=== PATIENT | male | born 1955 | race Caucasian/White ===

== ENCOUNTER 2024-02-04 13:14 | Inpatient (IN) | payer OTHER, BC ==
[~2024-02-04] VITALS: Ht 190.5 cm; Wt 106.6 kg
[2024-02-04 13:24] VITALS: BP 134/90; PULSE 92; RESP 18; TEMP 98.2; O2SAT 100
[2024-02-04 14:44] LABS: BASOPHILS % (AUTO) 0.4 % (0.0-2.0); EOSINOPHILS % (AUTO) 0.3 % (0.0-4.0); HEMOGLOBIN 14.4 g/dL (12.0-18.0); LYMPHOCYTES # (AUTO) 0.5 K/uL (2.0-11.5); LYMPHOCYTES % (AUTO) 4.4 % (20.5-51.1); MEAN CORPUSCULAR HEMOGLOBIN 30 pg (27-31); MEAN CORPUSCULAR HGB CONC 33 g/dL (33-37); MEAN CORPUSCULAR VOLUME 90.7 fL (80-94); MONOCYTES # (AUTO) 0.7 K/uL (0.8-1.0); MONOCYTES % (AUTO) 6.1 % (1.7-9.3); NEUTROPHILS # (AUTO) 10.7 K/uL (1.8-7.7); NEUTROPHILS % (AUTO) 88.8 % (42.2-75.2); PLATELET COUNT (AUTO) 218 K/uL (140-450); RED BLOOD CELL COUNT(AUTO) 4.86 MIL/uL (4.20-6.10); RED CELL DISTRIBUTION WIDTH 17.1 % (11.6-13.7); WHITE BLOOD COUNT (AUTO) 12.1 K/uL (4.8-10.8)
[2024-02-04 14:54] LABS: ANION GAP 10.3 (8-16); CALCIUM 8.7 mg/dL (8.5-10.1); CARBON DIOXIDE 29.2 mmol/L (21-32); CREATININE 0.7 mg/dL (0.6-1.3); POTASSIUM 3.5 mmol/L (3.5-5.1)
[2024-02-04] MEDS ORDERED: cefTRIAXone 1,000 MG VIAL ONE ×2 (15:42)
[2024-02-04] MEDS ORDERED: ACETAMINOPHEN 325 MG TAB PO PRN (18:55)
[2024-02-04] MEDS ORDERED: AZITHROMYCIN 500 MG INJ VIAL IV ONE (19:28)
[2024-02-04] MEDS: AZITHROMYCIN 500 MG in DEXTROSE 5% 250 ML IV SCH (19:35)
[2024-02-04] MEDS: NACL 0.9% 1,000 ML IV SCH (19:36)
[2024-02-04] MEDS: ONDANSETRON 4 MG/2 ML VIAL IVP PRN (19:51)
[2024-02-04] MEDS ORDERED: ABIR250T2 PO (20:17)
[2024-02-04] MEDS ORDERED: QUET50TA PO (20:17)
[2024-02-04] MEDS ORDERED: PRED5TAB7 PO (20:17)
[2024-02-04] MEDS ORDERED: SERT25TA PO (20:17)
[2024-02-04] MEDS ORDERED: HYDR-5080 PO (20:17)
[2024-02-04] MEDS ORDERED: ZYL300 PO (20:17)
[2024-02-04] MEDS ORDERED: SENN-73 PO (20:17)
[2024-02-04] MEDS ORDERED: POTA8TAB19 PO (20:24)
[2024-02-04] MEDS ORDERED: AMYL-30 PO (20:25)
[2024-02-04 20:39] VITALS: PULSE 94
[2024-02-04 21:00] VITALS: PULSE 88; RESP 18; O2SAT 96
[2024-02-04] MEDS ORDERED: MORPHINE SULFATE 2 MG/ML SYR IVP PRN (22:10)
[2024-02-04] MEDS: HYDROcodone/APAP 5/325 MG 1 TAB TAB PO PRN (22:45)
[2024-02-04 23:33] VITALS: O2SAT 96
[2024-02-05] VITALS (12 sets, daily range): BP systolic 103–139; BP diastolic 60–79; PULSE 84–108; RESP 17–20; TEMP 96.6–97.8; O2SAT 87–100
[2024-02-05 05:41] LABS: BASOPHILS % (AUTO) 0.3 % (0.0-2.0); EOSINOPHILS # (AUTO) 0.1 K/uL (0-0.4); HEMATOCRIT 43.4 % (36-52); HEMOGLOBIN 14.4 g/dL (12.0-18.0); LYMPHOCYTES # (AUTO) 1.4 K/uL (2.0-11.5); LYMPHOCYTES % (AUTO) 10.1 % (20.5-51.1); MEAN CORPUSCULAR HEMOGLOBIN 30 pg (27-31); MEAN CORPUSCULAR HGB CONC 33 g/dL (33-37); MEAN CORPUSCULAR VOLUME 91.1 fL (80-94); MONOCYTES # (AUTO) 1.3 K/uL (0.8-1.0); MONOCYTES % (AUTO) 8.9 % (1.7-9.3); NEUTROPHILS # (AUTO) 11.2 K/uL (1.8-7.7); NEUTROPHILS % (AUTO) 79.7 % (42.2-75.2); PLATELET COUNT (AUTO) 234 K/uL (140-450); RED BLOOD CELL COUNT(AUTO) 4.76 MIL/uL (4.20-6.10); RED CELL DISTRIBUTION WIDTH 16.6 % (11.6-13.7); WHITE BLOOD COUNT (AUTO) 14.1 K/uL (4.8-10.8)
[2024-02-05 05:44] LABS: ANION GAP 8.9 (8-16); CALCIUM 8.8 mg/dL (8.5-10.1); CARBON DIOXIDE 28.2 mmol/L (21-32); CREATININE 0.7 mg/dL (0.6-1.3); POTASSIUM 3.1 mmol/L (3.5-5.1)
[2024-02-05] MEDS: POTASSIUM CHLORIDE 10 MEQ TABER PO SCH (08:33)
[2024-02-05] MEDS: MAG SULF 2000 MG/WATER PREMIX 50 ML IV SCH (08:39)
[2024-02-05] MEDS: allopurinoL 300 MG TAB PO SCH (20:29)
[2024-02-05] MEDS: METOPROLOL 25 MG TAB PO SCH (20:29)
[2024-02-06] VITALS (11 sets, daily range): BP systolic 113–128; BP diastolic 66–72; PULSE 70–102; RESP 16–19; TEMP 96.3–97.4; O2SAT 92–96
[2024-02-06 05:54] LABS: BASOPHILS % (AUTO) 0.2 % (0.0-2.0); EOSINOPHILS # (AUTO) 0.2 K/uL (0-0.4); HEMATOCRIT 39.8 % (36-52); HEMOGLOBIN 12.9 g/dL (12.0-18.0); LYMPHOCYTES # (AUTO) 0.9 K/uL (2.0-11.5); MEAN CORPUSCULAR HEMOGLOBIN 30 pg (27-31); MEAN CORPUSCULAR HGB CONC 33 g/dL (33-37); MEAN CORPUSCULAR VOLUME 91.2 fL (80-94); MONOCYTES # (AUTO) 1.1 K/uL (0.8-1.0); MONOCYTES % (AUTO) 9.1 % (1.7-9.3); NEUTROPHILS # (AUTO) 9.4 K/uL (1.8-7.7); NEUTROPHILS % (AUTO) 80.7 % (42.2-75.2); PLATELET COUNT (AUTO) 171 K/uL (140-450); RED BLOOD CELL COUNT(AUTO) 4.36 MIL/uL (4.20-6.10); RED CELL DISTRIBUTION WIDTH 16.7 % (11.6-13.7); WHITE BLOOD COUNT (AUTO) 11.7 K/uL (4.8-10.8)
[2024-02-06 06:25] LABS: ANION GAP 5.7 (8-16); CALCIUM 8.5 mg/dL (8.5-10.1); CARBON DIOXIDE 33.2 mmol/L (21-32); CREATININE 0.7 mg/dL (0.6-1.3); POTASSIUM 3.9 mmol/L (3.5-5.1)
[2024-02-06] MEDS: QUEtiapine FUMARATE 25 MG TAB PO SCH (09:15)
[2024-02-06] MEDS: predniSONE 5 MG TAB PO SCH (09:15)
[2024-02-06] MEDS: SERTRALINE 50 MG TAB PO SCH (09:17)
[2024-02-06] MEDS: ALBUTEROL SULFATE/IPRATROPIU 3 ML SOL IH PRN (10:44)
[2024-02-06] MEDS ORDERED: COMMUNICATION ORDER MC SCH (17:00)
[2024-02-06] MEDS: CREON PO SCH (17:05)
[2024-02-07] VITALS (10 sets, daily range): BP systolic 123–140; BP diastolic 64–74; PULSE 66–92; RESP 16–22; TEMP 96.1–97; O2SAT 85–96
[2024-02-07 05:36] LABS: BASOPHILS % (AUTO) 0.2 % (0.0-2.0); EOSINOPHILS # (AUTO) 0.4 K/uL (0-0.4); HEMATOCRIT 37.2 % (36-52); HEMOGLOBIN 12.4 g/dL (12.0-18.0); LYMPHOCYTES # (AUTO) 1.1 K/uL (2.0-11.5); LYMPHOCYTES % (AUTO) 8.1 % (20.5-51.1); MEAN CORPUSCULAR HEMOGLOBIN 31 pg (27-31); MEAN CORPUSCULAR HGB CONC 33 g/dL (33-37); MEAN CORPUSCULAR VOLUME 91.4 fL (80-94); MONOCYTES # (AUTO) 0.9 K/uL (0.8-1.0); MONOCYTES % (AUTO) 7.2 % (1.7-9.3); NEUTROPHILS # (AUTO) 10.6 K/uL (1.8-7.7); NEUTROPHILS % (AUTO) 81.5 % (42.2-75.2); PLATELET COUNT (AUTO) 182 K/uL (140-450); RED BLOOD CELL COUNT(AUTO) 4.07 MIL/uL (4.20-6.10); RED CELL DISTRIBUTION WIDTH 16.3 % (11.6-13.7)
[2024-02-07 05:50] LABS: ANION GAP 7.9 (8-16); CALCIUM 8.4 mg/dL (8.5-10.1); CARBON DIOXIDE 31.6 mmol/L (21-32); CREATININE 0.6 mg/dL (0.6-1.3); POTASSIUM 3.5 mmol/L (3.5-5.1)
[2024-02-07 11:14] LABS: BLOOD GAS PCO2 41.6 mmHg (35-45); BLOOD GAS PH 7.445 (7.35-7.45); BLOOD GAS PO2 74.2 mmHg (75-100)
[2024-02-07 11:15] LABS: BLOOD GAS BASE EXCESS 3.5 mmol/L (-2.0-2.0); BLOOD GAS O2 SAT% 95.1 % (92.0-98.5)
[2024-02-07 11:17] LABS: BLOOD GAS HCO3 27.9 mmol/L (22-26)
[2024-02-07] MEDS: PANTOPRAZOLE 40 MG INJ VIAL IVP SCH (18:33)
[2024-02-07] MEDS ORDERED: PANTOPRAZOLE 40 MG INJ VIAL IVP SCH (21:00)
[2024-02-08] VITALS (8 sets, daily range): BP systolic 127–140; BP diastolic 61–75; PULSE 72–101; RESP 18–24; TEMP 96.8–97.9; O2SAT 91–98
[2024-02-08 06:05] LABS: BASOPHILS % (AUTO) 0.3 % (0.0-2.0); EOSINOPHILS # (AUTO) 0.4 K/uL (0-0.4); HEMATOCRIT 35.6 % (36-52); LYMPHOCYTES # (AUTO) 1.2 K/uL (2.0-11.5); LYMPHOCYTES % (AUTO) 11.1 % (20.5-51.1); MEAN CORPUSCULAR HEMOGLOBIN 30 pg (27-31); MEAN CORPUSCULAR HGB CONC 34 g/dL (33-37); MEAN CORPUSCULAR VOLUME 90.3 fL (80-94); MONOCYTES % (AUTO) 9.4 % (1.7-9.3); NEUTROPHILS # (AUTO) 7.9 K/uL (1.8-7.7); NEUTROPHILS % (AUTO) 75.2 % (42.2-75.2); PLATELET COUNT (AUTO) 182 K/uL (140-450); RED BLOOD CELL COUNT(AUTO) 3.94 MIL/uL (4.20-6.10); RED CELL DISTRIBUTION WIDTH 16.3 % (11.6-13.7); WHITE BLOOD COUNT (AUTO) 10.5 K/uL (4.8-10.8)
[2024-02-08 06:38] LABS: ANION GAP 6.8 (8-16); CALCIUM 8.1 mg/dL (8.5-10.1); CARBON DIOXIDE 32.8 mmol/L (21-32); CREATININE 0.6 mg/dL (0.6-1.3); POTASSIUM 3.6 mmol/L (3.5-5.1)
[2024-02-08] MEDS: LORazepam 1 MG TAB PO PRN (15:57)
[2024-02-09] VITALS (16 sets, daily range): BP systolic 125–149; BP diastolic 4–75; PULSE 65–91; RESP 0–40; TEMP 97–97.7; O2SAT 90–99
[2024-02-09] MEDS ORDERED: ALBUTEROL SULFATE/IPRATROPIU 3 ML SOL IH ONE (00:02)
[2024-02-09] MEDS: ALBUTEROL SULFATE/IPRATROPIU 3 ML SOL IH SCH (00:04)
[2024-02-09 06:48] LABS: ANION GAP 7.3 (8-16); CALCIUM 8.5 mg/dL (8.5-10.1); CARBON DIOXIDE 32.9 mmol/L (21-32); CREATININE 0.6 mg/dL (0.6-1.3); POTASSIUM 3.2 mmol/L (3.5-5.1)
[2024-02-09] MEDS ORDERED: ALBUTEROL SULFATE/IPRATROPIU 3 ML SOL IH SCH (07:00)
[2024-02-09 07:03] LABS: BASOPHILS % (AUTO) 0.3 % (0.0-2.0); EOSINOPHILS # (AUTO) 0.2 K/uL (0-0.4); EOSINOPHILS % (AUTO) 1.4 % (0.0-4.0); HEMATOCRIT 38.7 % (36-52); HEMOGLOBIN 12.8 g/dL (12.0-18.0); LYMPHOCYTES # (AUTO) 0.7 K/uL (2.0-11.5); LYMPHOCYTES % (AUTO) 5.2 % (20.5-51.1); MEAN CORPUSCULAR HEMOGLOBIN 30 pg (27-31); MEAN CORPUSCULAR HGB CONC 33 g/dL (33-37); MEAN CORPUSCULAR VOLUME 89.9 fL (80-94); MONOCYTES % (AUTO) 6.7 % (1.7-9.3); NEUTROPHILS # (AUTO) 12.2 K/uL (1.8-7.7); NEUTROPHILS % (AUTO) 86.4 % (42.2-75.2); PLATELET COUNT (AUTO) 209 K/uL (140-450); RED CELL DISTRIBUTION WIDTH 16.2 % (11.6-13.7); WHITE BLOOD COUNT (AUTO) 14.2 K/uL (4.8-10.8)
[2024-02-09] MEDS: KCL 20 MEQ IN 100 mL PREMIX 200 ML IV SCH (12:53)
[2024-02-09] MEDS: PIPERACILLIN/TAZOBACTAM 3.375 GM in DEXTROSE 5% 50 ML IV SCH (16:54)
[2024-02-10] VITALS (20 sets, daily range): BP systolic 93–212; BP diastolic 30–88; PULSE 9–93; RESP 18–56; TEMP 96.6–99.2; O2SAT 90–98
[2024-02-10 06:40] LABS: BASOPHILS % (AUTO) 0.3 % (0.0-2.0); EOSINOPHILS # (AUTO) 0.4 K/uL (0-0.4); EOSINOPHILS % (AUTO) 2.5 % (0.0-4.0); HEMATOCRIT 35.7 % (36-52); HEMOGLOBIN 11.9 g/dL (12.0-18.0); LYMPHOCYTES # (AUTO) 0.7 K/uL (2.0-11.5); LYMPHOCYTES % (AUTO) 5.2 % (20.5-51.1); MEAN CORPUSCULAR HEMOGLOBIN 30 pg (27-31); MEAN CORPUSCULAR HGB CONC 33 g/dL (33-37); MEAN CORPUSCULAR VOLUME 89.3 fL (80-94); MONOCYTES # (AUTO) 0.9 K/uL (0.8-1.0); MONOCYTES % (AUTO) 6.2 % (1.7-9.3); NEUTROPHILS # (AUTO) 12.3 K/uL (1.8-7.7); NEUTROPHILS % (AUTO) 85.8 % (42.2-75.2); PLATELET COUNT (AUTO) 193 K/uL (140-450); WHITE BLOOD COUNT (AUTO) 14.4 K/uL (4.8-10.8)
[2024-02-10 07:02] LABS: ANION GAP 7.3 (8-16); CALCIUM 8.3 mg/dL (8.5-10.1); CARBON DIOXIDE 31.2 mmol/L (21-32); CREATININE 0.6 mg/dL (0.6-1.3); POTASSIUM 3.5 mmol/L (3.5-5.1)
[2024-02-10 10:13] LABS: BLOOD GAS BASE EXCESS 0.4 mmol/L (-2.0-2.0); BLOOD GAS HCO3 24.8 mmol/L (22-26); BLOOD GAS PCO2 39.1 mmHg (35-45); BLOOD GAS PO2 66.7 mmHg (75-100)
[2024-02-10 10:14] LABS: BLOOD GAS O2 SAT% 92.6 % (92.0-98.5)
[2024-02-10] MEDS: DEXMEDETOMIDINE HCL 400 MCG in NACL 0.9% 96 ML IV PRN (10:45)
[2024-02-10] MEDS: methylPREDNISolone SS 125 MG/2 ML VIAL IVP SCH (12:49)
[2024-02-11] VITALS (30 sets, daily range): BP systolic 100–155; BP diastolic 55–83; PULSE 49–71; RESP 28–45; TEMP 96.4–98.7; O2SAT 92–100
[2024-02-11 06:18] LABS: CALCIUM 8.9 mg/dL (8.5-10.1); CARBON DIOXIDE 32.9 mmol/L (21-32); CREATININE 0.7 mg/dL (0.6-1.3); POTASSIUM 3.9 mmol/L (3.5-5.1)
[2024-02-11 06:37] LABS: BASOPHILS % (AUTO) 0.2 % (0.0-2.0); EOSINOPHILS % (AUTO) 0.1 % (0.0-4.0); HEMATOCRIT 36.8 % (36-52); HEMOGLOBIN 12.4 g/dL (12.0-18.0); LYMPHOCYTES # (AUTO) 0.3 K/uL (2.0-11.5); LYMPHOCYTES % (AUTO) 3.2 % (20.5-51.1); MEAN CORPUSCULAR HEMOGLOBIN 30 pg (27-31); MEAN CORPUSCULAR HGB CONC 34 g/dL (33-37); MEAN CORPUSCULAR VOLUME 89.4 fL (80-94); MONOCYTES # (AUTO) 0.2 K/uL (0.8-1.0); MONOCYTES % (AUTO) 2.2 % (1.7-9.3); NEUTROPHILS # (AUTO) 8.6 K/uL (1.8-7.7); NEUTROPHILS % (AUTO) 94.3 % (42.2-75.2); PLATELET COUNT (AUTO) 165 K/uL (140-450); RED BLOOD CELL COUNT(AUTO) 4.12 MIL/uL (4.20-6.10); RED CELL DISTRIBUTION WIDTH 15.8 % (11.6-13.7); WHITE BLOOD COUNT (AUTO) 9.1 K/uL (4.8-10.8)
[2024-02-11] MEDS: FUROSEMIDE 40 MG/4 ML VIAL IVP SCH (08:58)
[2024-02-11] MEDS: CRUSHER, PILL MC ONE (09:03)
[2024-02-11] MEDS ORDERED: VANCOMYCIN PER PHARMACY MC PRN (09:35)
[2024-02-11 10:44] LABS: BLOOD GAS PH 7.431 (7.35-7.45)
[2024-02-11 10:45] LABS: BLOOD GAS BASE EXCESS 1.4 mmol/L (-2.0-2.0); BLOOD GAS HCO3 25.8 mmol/L (22-26); BLOOD GAS O2 SAT% 91.4 % (92.0-98.5); BLOOD GAS PCO2 39.6 mmHg (35-45)
[2024-02-11] MEDS: VANCOMYCIN 1,000 MG in DEXTROSE 5% 250 ML IV SCH (11:18)
[2024-02-12] VITALS (26 sets, daily range): BP systolic 112–157; BP diastolic 53–92; PULSE 48–69; RESP 23–43; TEMP 96.5–97.8; O2SAT 94–100
[2024-02-12 05:57] LABS: HEMATOCRIT 36.5 % (36-52); MEAN CORPUSCULAR HEMOGLOBIN 30 pg (27-31); MEAN CORPUSCULAR HGB CONC 33 g/dL (33-37); MEAN CORPUSCULAR VOLUME 89.5 fL (80-94); PLATELET COUNT (AUTO) 176 K/uL (140-450); RED BLOOD CELL COUNT(AUTO) 4.08 MIL/uL (4.20-6.10); RED CELL DISTRIBUTION WIDTH 15.7 % (11.6-13.7); WHITE BLOOD COUNT (AUTO) 15.4 K/uL (4.8-10.8)
[2024-02-12 06:17] LABS: ANION GAP 6.4 (8-16); CALCIUM 8.8 mg/dL (8.5-10.1); CARBON DIOXIDE 32.8 mmol/L (21-32); CREATININE 0.7 mg/dL (0.6-1.3); POTASSIUM 3.2 mmol/L (3.5-5.1)
[2024-02-12 07:26] LABS: MONOCYTES % (MANUAL) 4 % (5-12)
[2024-02-12 07:27] LABS: LYMPHOCYTES % (MANUAL) 4 % (20-46)
[2024-02-12 07:28] LABS: PLATELET ESTIMATE ADEQUATE
[2024-02-12] MEDS ORDERED: FUROSEMIDE 40 MG/4 ML VIAL IVP SCH (09:31)
[2024-02-12] MEDS ORDERED: PPN PER PHARMACY MC PRN (09:35)
[2024-02-12] MEDS: FUROSEMIDE 40 MG/4 ML VIAL IVP SCH ×2 (09:47→17:32)
[2024-02-12 09:58] LABS: PHOSPHORUS 3.1 mg/dL (2.5-4.9)
[2024-02-12] MEDS: DEXMEDETOMIDINE HCL 100 MCG/ML 2 ML VIAL IV ONE (10:49)
[2024-02-12] MEDS: POTASSIUM CHLORIDE 40 MEQ, LIDOCAINE 1% 25 MG in NACL 0.9% 250 ML IV SCH (10:52)
[2024-02-12] MEDS: BLOOD GLUCOSE MONITORING 1 DEV DEV MC SCH (11:55)
[2024-02-12] MEDS: INSULIN LISPRO SLIDING SCALE 100 UNITS/ML VIAL SUBQ PRN (12:06)
[2024-02-12] MEDS: DEXTROSE IV SCH (19:57)
[2024-02-12] MEDS: [UNRECOGNIZED DRUG - OTHER] IV SCH (19:57)
[2024-02-12] MEDS: AMINO ACIDS IV SCH (19:57)
[2024-02-12] MEDS: MULTIVITAMIN IV SCH (19:57)
[2024-02-13] VITALS (31 sets, daily range): BP systolic 91–171; BP diastolic 43–97; PULSE 48–88; RESP 22–48; TEMP 96.8–98.2; O2SAT 90–100
[2024-02-13 06:06] LABS: BASOPHILS % (AUTO) 0.1 % (0.0-2.0); HEMATOCRIT 35.5 % (36-52); HEMOGLOBIN 11.7 g/dL (12.0-18.0); LYMPHOCYTES # (AUTO) 0.3 K/uL (2.0-11.5); LYMPHOCYTES % (AUTO) 1.9 % (20.5-51.1); MEAN CORPUSCULAR HEMOGLOBIN 29 pg (27-31); MEAN CORPUSCULAR HGB CONC 33 g/dL (33-37); MEAN CORPUSCULAR VOLUME 89.4 fL (80-94); MONOCYTES # (AUTO) 0.5 K/uL (0.8-1.0); MONOCYTES % (AUTO) 3.9 % (1.7-9.3); NEUTROPHILS # (AUTO) 12.7 K/uL (1.8-7.7); NEUTROPHILS % (AUTO) 94.1 % (42.2-75.2); PLATELET COUNT (AUTO) 173 K/uL (140-450); RED BLOOD CELL COUNT(AUTO) 3.97 MIL/uL (4.20-6.10); RED CELL DISTRIBUTION WIDTH 15.7 % (11.6-13.7); WHITE BLOOD COUNT (AUTO) 13.5 K/uL (4.8-10.8)
[2024-02-13 06:23] LABS: ALBUMIN 1.9 g/dL (3.4-5.0); BILIRUBIN,DIRECT 0.1 mg/dL (0.0-0.3); TOTAL BILIRUBIN 0.3 mg/dL (0.0-1.0); TOTAL PROTEIN, SERUM 5.9 g/dL (6.4-8.2)
[2024-02-13 06:24] LABS: ANION GAP 5.5 (8-16); CALCIUM 8.5 mg/dL (8.5-10.1); CARBON DIOXIDE 33.5 mmol/L (21-32); CREATININE 0.6 mg/dL (0.6-1.3)
[2024-02-13 06:53] LABS: MAGNESIUM 1.9 mg/dL (1.8-2.4); PHOSPHORUS 2.6 mg/dL (2.5-4.9)
[2024-02-13] MEDS ORDERED: TPN PER PHARMACY MC PRN (08:20)
[2024-02-13] MEDS ORDERED: POTASSIUM CHLORIDE 40 MEQ, LIDOCAINE 1% 25 MG in NACL 0.9% 250 ML IV SCH (09:00)
[2024-02-13] MEDS: POTASSIUM CHLORIDE 40 MEQ, LIDOCAINE 1% 25 MG in NACL 0.9% 250 ML IV SCH (10:00)
[2024-02-13] MEDS: LORazepam 2 MG/ML VIAL IVP SCH (17:57)
[2024-02-13] MEDS: [UNRECOGNIZED DRUG - OTHER] IV SCH (19:52)
[2024-02-13] MEDS: MULTIVITAMIN IV SCH (19:52)
[2024-02-13] MEDS: DEXTROSE IV SCH (19:52)
[2024-02-13] MEDS: AMINO ACIDS IV SCH (19:52)
[2024-02-14] VITALS (18 sets, daily range): BP systolic 94–179; BP diastolic 46–102; PULSE 58–180; RESP 25–58; TEMP 97.6–98.2; O2SAT 70–99
[2024-02-14] MEDS: hydrALAZINE 20 MG/ML VIAL IVP PRN (03:12)
[2024-02-14 04:12] LABS: BASOPHILS % (AUTO) 0.1 % (0.0-2.0); EOSINOPHILS % (AUTO) 0.1 % (0.0-4.0); HEMATOCRIT 39.8 % (36-52); LYMPHOCYTES # (AUTO) 0.5 K/uL (2.0-11.5); LYMPHOCYTES % (AUTO) 2.1 % (20.5-51.1); MEAN CORPUSCULAR HEMOGLOBIN 29 pg (27-31); MEAN CORPUSCULAR HGB CONC 33 g/dL (33-37); MEAN CORPUSCULAR VOLUME 89.6 fL (80-94); MONOCYTES # (AUTO) 1.2 K/uL (0.8-1.0); MONOCYTES % (AUTO) 4.7 % (1.7-9.3); NEUTROPHILS # (AUTO) 24.6 K/uL (1.8-7.7); PLATELET COUNT (AUTO) 290 K/uL (140-450); RED BLOOD CELL COUNT(AUTO) 4.44 MIL/uL (4.20-6.10); RED CELL DISTRIBUTION WIDTH 15.7 % (11.6-13.7)
[2024-02-14 04:16] LABS: WHITE BLOOD COUNT (AUTO) 26.5 K/uL (4.8-10.8)
[2024-02-14] MEDS: LORazepam 2 MG/ML VIAL IVP PRN (04:19)
[2024-02-14] MEDS ORDERED: AMIODARONE 450 MG in DEXTROSE 5% 250 ML IV SCH (04:20)
[2024-02-14] MEDS: AMIODARONE 450 MG/9 ML VIAL IV ONE (04:22)
[2024-02-14 04:24] LABS: ANION GAP 11.6 (8-16); CALCIUM 8.7 mg/dL (8.5-10.1); CREATININE 0.8 mg/dL (0.6-1.3); POTASSIUM 3.6 mmol/L (3.5-5.1)
[2024-02-14 04:28] LABS: MAGNESIUM 1.9 mg/dL (1.8-2.4); PHOSPHORUS 3.6 mg/dL (2.5-4.9)
[2024-02-14 04:49] LABS: BLOOD GAS PCO2 46.8 mmHg (35-45)
[2024-02-14 04:50] LABS: BLOOD GAS BASE EXCESS 1.4 mmol/L (-2.0-2.0); BLOOD GAS HCO3 27.1 mmol/L (22-26); BLOOD GAS O2 SAT% 87.4 % (92.0-98.5); BLOOD GAS PO2 58.5 mmHg (75-100)
[2024-02-14 04:51] LABS: BLOOD GAS PH 7.381 (7.35-7.45)
[2024-02-14] MEDS: AMIODARONE 150 MG/3 ML VIAL IV ONE (05:18)
[2024-02-14] MEDS: AMIODARONE 150 MG in DEXTROSE 5% 100 ML IV ONE (05:19)
[2024-02-14] MEDS ORDERED: DILTIAZEM 125 MG in DEXTROSE 5% 100 ML IV SCH (06:05)
[2024-02-14] MEDS: DILTIAZEM 125 MG/25 ML VIAL IV ONE (06:23)
[2024-02-14] MEDS: LEVALBUTEROL 1.25 MG/0.5 ML NEBU INH SCH (07:35)
[2024-02-14] MEDS: MORPHINE SULFATE 2 MG/ML SYR IVP PRN (09:07)
[2024-02-14] MEDS: MORPHINE SULFATE 50 MG in NACL 0.9% 45 ML IV PRN (10:33)
[2024-02-14] MEDS: LORazepam 2 MG/ML VIAL IM/IVP PRN (10:38)
[2024-02-14] MEDS ORDERED: VANCOMYCIN 1,000 MG in NACL 0.9% 250 ML IV SCH (11:00)
== END 2024-02-14 16:44 | DRG 871 ==
LOC: MED 13:14 → MTU 18:55 → MMU 02-08 17:00 → MIC 02-10 09:30 → MMU 02-14 16:43
PROVIDERS: ADMIT Student in an Organized Health Care Education/Training Program; ATTEND Student in an Organized Health Care Education/Training Program
PROC: 5A0935A Assistance with Respiratory Ventilation, Less than 24 Consecutive Hours, High Flow/Velocity Cannula (ICD-10-PCS; 2024-02-04)
PROC: 5A09557 Assistance with Respiratory Ventilation, Greater than 96 Consecutive Hours, Continuous Positive Airway Pressure (ICD-10-PCS; principal; 2024-02-09)
PROC: 5A0935A Assistance with Respiratory Ventilation, Less than 24 Consecutive Hours, High Flow/Velocity Cannula (ICD-10-PCS; 2024-02-09)
PROC: 02HV33Z Insertion of Infusion Device into Superior Vena Cava, Percutaneous Approach (ICD-10-PCS; 2024-02-12)
PROC: B548ZZA Ultrasonography of Superior Vena Cava, Guidance (ICD-10-PCS; 2024-02-12)
DX: A41.9 Sepsis, unspecified organism (principal); E43 Unspecified severe protein-calorie malnutrition; J15.69 Pneumonia due to other Gram-negative bacteria; J96.01 Acute respiratory failure with hypoxia; J15.9 Unspecified bacterial pneumonia; Z20.822 Contact with and (suspected) exposure to COVID-19; I46.9 Cardiac arrest, cause unspecified; Z88.8 Allergy status to other drugs, medicaments and biological substances; Z85.46 Personal history of malignant neoplasm of prostate; Z85.07 Personal history of malignant neoplasm of pancreas; Z90.49 Acquired absence of other specified parts of digestive tract; Z68.29 Body mass index [BMI] 29.0-29.9, adult
CPT/HCPCS: 36415; 36600; 71045; 71250; 71275; 80048; 80076; 80202; 82803; 82948; 83735; 83880; 84100; 84478; 84484; 85025; 85379; 87040; 87081; 93005; 94617; 94640; 94660; 96365; 97110; 97163-GP; 97530; 99285; A9153; J0282; J0360; J0456; J0696; J1815; J1940; J2001; J2060; J2270; J2405; J2470; J2543; J2919; J3370; J3475; J3480; J3490; J7030; J7060; J7512; J7612; Q0092; Q9967